=== PATIENT | female | born 1985 | race Caucasian/White ===

== ENCOUNTER 2019-06-28 03:38 | Inpatient (IN) ==
[2019-06-28] MEDS ORDERED: OXYTOCIN 30 UNITS/500 ML BAG IV PRN ×3 (03:48→15:30)
[2019-06-28] MEDS: LACTATED RINGER'S 1,000 ML IV PRN ×4 (04:11→14:37)
[2019-06-28 04:16] LABS: Hematocrit (blood only) 39.6 % (37-47); Mean Corpuscular Hemoglobin 30.2 pg (25-34); Mean Corpuscular Volume 92.1 fL (80-100); Mean Platelet Volume 11.2 fL (7.4-10.4); Platelet Count 172 K/uL (130-400); RDW Coefficient of Variation 14.4 % (11.5-14.5); RDW Standard Deviation 47.9 fL (36.4-46.3)
[2019-06-28 04:27] LABS: Mean Corpuscular Hgb Conc 32.8 g/dL (32-36)
[2019-06-28] MEDS ORDERED: fentaNYL citrate 100 MCG/2 ML VIAL ONE (04:27)
[2019-06-28] MEDS ORDERED: ePHEDrine sulfate 50 MG/ML AMP ONE (04:28)
[2019-06-28] MEDS ORDERED: fentaNYL 2MCG/ML ROPIV 1.25MG/ML 100 ML BAG EPI ONE (04:28)
[2019-06-28] MEDS ORDERED: BUPIVACAINE 0.25% 30 ML VIAL ONE (04:28)
--- NOTE | 2019-06-28 04:51 | Anesthesiology Consultation ---
Date of Service June 28, 2019 Assessment & Plan ASA ASA2 Proposed Anesthesia Anesthesia Type: Labor Epidural Risk / Benefits Reviewed With: PT / POA / Parent / Guardian, Accepts Plan and Informed Consent Obtained History Height/Weight Height: 5 ft 3 in Weight: 56.245 kg Allergies Allergy/AdvReac Type Severity Reaction Status Date / Time diphtheria,pertussis Allergy Verified 06/27/19 14:45 (acellular),te [From Adacel(Tdap Adolesn/Adult)(PF)] Medications Home Medications Medication Instructions Recorded Confirmed Last Taken valacyclovir 500 mg tablet 500 mg PO DAILY #30 tab 05/30/19 06/27/19 06/16/19 21:00 PNV cmb#95-ferrous fumarate-FA 1 tab PO DAILY 06/17/19 06/27/19 06/16/19 21:00 [] Active Medications Generic Name Dose Route Start Last Admin Trade Name Freq PRN Reason Stop Dose Admin Lactated Ringer's 1,000 mls @ 125 mls/hr 06/28/19 03:48 06/28/19 05:12 Lr IV 06/30/19 03:47 999 mls/hr .Q8H PRN Administration L&D Protocol Protocol Past Medical History Medical History Anemia HX OF Asthma MILD/NO INHALER Atypical squamous cells of undetermined significance with positive high risk human papillomavirus 09/22/17 History of chicken pox History of mastitis Temporomandibular joint disorder Vaginal delivery 04/2018 Exercise / Class Metabolic Activity II 4-5 Yardwork/Stairs/Walk up hill Past Family History Family History Other No pertinent family history Past Surgical History Surgical History History of adenoidectomy History of colposcopy with cervical biopsy 08/13/18 History of tonsillectomy History of tooth extraction Past Anesthesia History No Hx of Anesthesia Complications and No Family Hx of Anesthesia Complications History of PONV No Hx of PONV and No Hx of Motion Sickness Social History Smoking Status: Never smoker Hx Alcohol Use: Yes Alcohol type: beer and wine alcohol intake frequency: a few times a week Hx Substance Use: No substance use type: does not use Review of Systems denies fever/cough/ colds/ chest pain/ SOB/ ADDISON Constitutional: no fever and no chills Respiratory: no cough and no dyspnea denies ADDISON Cardiovascular: no chest pain and no dyspnea on exertion Physical Exam Vital Signs Last Vital Signs Temp 36.6 C 06/28/19 04:15 Pulse 71 06/28/19 05:19 Resp 18 06/28/19 04:15 BP 110/62 06/28/19 05:19 Pulse Ox 100 06/28/19 05:15 ENMT Mouth: no TMJ abnormality and no dentition abnormality Thyromental Distance: > or= 3.5 Finger Breadths Mallampati Class: II Neck neck extension not limited Respiratory normal respiratory effort; no respiratory distress Auscultation: lungs clear to auscultation bilaterally Cardiovascular Rate/Rhythm: regular rate and regular rhythm Neurologic moves all extremities Psychiatric Orientation: alert and oriented x 3 Testing Laboratory Results 06/28/19 04:00
[2019-06-28] MEDS ORDERED: DiphenhydrAMINE HCL 50 MG/ML VIAL IV PRN (05:22)
[2019-06-28] MEDS ORDERED: ePHEDrine sulfate 50 MG/ML AMP IV PRN (05:22)
[2019-06-28] MEDS ORDERED: fentaNYL 2MCG/ML ROPIV 1.25MG/ML 100 ML BAG EPI PRN (05:22)
[2019-06-28] MEDS ORDERED: ONDANSETRON INJ 2 MG/ML 2 ML VIAL IV PRN (05:22)
[2019-06-28] MEDS ORDERED: NALOXONE HCL 0.4 MG/1 ML VIAL/CARP IV PRN (05:22)
[2019-06-28] MEDS ORDERED: NALBUPHINE HCL INJ 10 MG/ML AMP IV PRN (05:22)
[2019-06-28] MEDS ORDERED: NALOXONE HCL 1 MG in SODIUM CHLORIDE 0.9% 1000ML 1,000 ML IV PRN (05:22)
--- NOTE | 2019-06-28 06:56 | Labor Progress Brief Note ---
Date of Service June 28, 2019 Subjective For IOL this morning but came in overnight with onset of labor. Membranes intact. Comfortable with epidural. Assessment & Plan (1) Supervision of elderly multigravida: Came in laboring, pitocin ordered to profile it for planned IOL but patient making change and may not need pitocin for now. Did not AROM, waiting for head to be better applied. Anticipate . Trimester: third trimester Qualified Code(s): O09.523 - Supervision of elderly multigravida, third trimester Physical Exam Physical Exam: /-3 (ballottable; did not AROM) FHT Cat 1 [place] not tracing a contraction pattern but change is occurring, so presume poor tracing. Results & Data Vital Signs (Past 12 Hours) Vital Signs Temp Pulse Resp BP Pulse Ox 06/28/19 06:50 105 H 100 06/28/19 06:48 90 105/56 L 06/28/19 06:45 100 H 99 06/28/19 06:40 98 H 98 06/28/19 06:35 100 H 99 06/28/19 06:33 83 107/52 L 06/28/19 06:30 96 H 98 06/28/19 06:25 84 98 06/28/19 06:20 99 H 99 06/28/19 06:17 100 H 91/50 L 06/28/19 06:15 112 H 97 06/28/19 06:10 84 97 06/28/19 06:05 91 H 96 06/28/19 06:02 89 94/52 L 06/28/19 06:00 86 98 06/28/19 05:55 87 97 06/28/19 05:50 76 98 06/28/19 05:46 81 107/58 L 06/28/19 05:45 80 99 06/28/19 05:43 85 96/54 L 06/28/19 05:40 79 101/53 L 99 06/28/19 05:37 75 102/55 L 06/28/19 05:35 89 99 06/28/19 05:34 80 101/50 L 06/28/19 05:31 75 102/50 L 06/28/19 05:30 74 99 06/28/19 05:28 81 98/50 L 06/28/19 05:25 81 110/56 L 100 06/28/19 05:22 67 116/62 06/28/19 05:20 93 H 100 06/28/19 05:19 71 110/62 06/28/19 05:17 94 H 100/56 L 06/28/19 05:15 121 H 100 06/28/19 05:12 54 L 121/62 06/28/19 05:10 75 87/51 L 100 06/28/19 05:08 126 H 104/46 L 06/28/19 05:06 114 H 100/61 06/28/19 05:05 95 H 100 06/28/19 05:01 91 H 109/57 L 06/28/19 05:00 106 H 100 06/28/19 04:58 114 H 129/71 06/28/19 04:55 112 H 100 06/28/19 04:15 97.9 F 82 18 124/60 06/28/19 03:55 97.9 F 82 124/60 Coding Level of Care Code None Diagnoses Supervision of elderly multigravida O09.523 Trimester: third trimester
[2019-06-28] MEDS ORDERED: CALCIUM CARBONATE 500 MG CHEWABLE TAB PO PRN (07:34)
[2019-06-28] MEDS ORDERED: FAMOTIDINE 20MG IV PUSH 20 MG/5 ML SYR IV STA (12:04)
--- NOTE | 2019-06-28 14:41 | Labor Progress Brief Note ---
Date of Service June 28, 2019 Subjective Reason For Note: Routine Evaluation Assessment & Plan (1) Supervision of elderly multigravida: Patient complete and will start pushing Trimester: third trimester Qualified Code(s): O09.523 - Supervision of elderly multigravida, third trimester Physical Exam 2 Genitourinary: Manual OB Exam: + cervical dilation 10 cm, + cervical effacement 100%, + station + 2 and + amniotic fluid clear OB Exam Monitor Tracing: + external FHT monitor used, + external uterine monitor used, + category I and + early decelerations present Results & Data Vital Signs (Past 12 Hours) Vital Signs Temp Pulse Resp BP Pulse Ox 06/28/19 14:35 90 99 06/28/19 14:32 93 H 108/59 L 06/28/19 14:30 79 100 06/28/19 14:25 88 99 06/28/19 14:20 86 99 06/28/19 14:18 83 109/59 L 06/28/19 14:15 82 98 06/28/19 14:10 110 H 98 06/28/19 14:05 110 H 98 06/28/19 14:02 80 104/56 L 06/28/19 14:00 86 98 06/28/19 13:55 83 98 06/28/19 13:50 79 98 06/28/19 13:47 87 99/56 L 06/28/19 13:45 78 98 06/28/19 13:40 80 98 06/28/19 13:35 90 98 06/28/19 13:33 93 H 102/56 L 06/28/19 13:30 100 H 98 06/28/19 13:25 79 98 06/28/19 13:20 102 H 98 06/28/19 13:17 110 H 95/53 L 06/28/19 13:15 86 98 06/28/19 13:10 100 H 98 06/28/19 13:07 18 06/28/19 13:05 97 H 99 06/28/19 13:02 75 108/54 L 06/28/19 13:00 106 H 98 06/28/19 12:55 87 98 06/28/19 12:50 72 98 06/28/19 12:47 75 112/58 L 06/28/19 12:45 78 98 06/28/19 12:40 94 H 98 06/28/19 12:35 67 98 06/28/19 12:33 92 H 99/54 L 06/28/19 12:30 82 99 06/28/19 12:25 72 98 06/28/19 12:20 78 98 06/28/19 12:17 75 120/59 L 06/28/19 12:15 81 99 06/28/19 12:10 79 98 06/28/19 12:05 85 99 06/28/19 12:03 85 107/52 L 06/28/19 12:00 82 99 06/28/19 11:55 82 99 06/28/19 11:50 84 108/59 L 99 06/28/19 11:47 83 106/65 94 06/28/19 11:45 72 99 06/28/19 11:40 69 97 06/28/19 11:35 120 H 97 06/28/19 11:32 125 H 88/52 L 06/28/19 11:30 107 H 97 06/28/19 11:25 98 H 97 06/28/19 11:20 101 H 96 06/28/19 11:17 98 H 95/51 L 06/28/19 11:15 76 96 06/28/19 11:10 82 96 06/28/19 11:05 103 H 97 06/28/19 11:01 92 H 92/51 L 06/28/19 11:00 92 H 96 06/28/19 10:55 93 H 97 06/28/19 10:50 85 96 06/28/19 10:47 74 100/59 L 06/28/19 10:45 73 95 06/28/19 10:40 95 H 96 06/28/19 10:35 84 96 06/28/19 10:32 84 91/54 L 06/28/19 10:30 95 H 97 06/28/19 10:27 103 H 93 06/28/19 10:25 82 96 06/28/19 10:20 113 H 97 06/28/19 10:16 85 89/55 L 06/28/19 10:15 74 95 06/28/19 10:12 77 93 06/28/19 10:10 83 97 06/28/19 10:05 88 95 06/28/19 10:02 85 92/50 L 06/28/19 10:00 120 H 96 06/28/19 09:55 120 H 97 06/28/19 09:50 85 97 06/28/19 09:48 87 92/51 L 06/28/19 09:45 100 H 97 06/28/19 09:40 113 H 97 06/28/19 09:35 88 97 06/28/19 09:31 98 H 94/50 L 06/28/19 09:30 71 96 06/28/19 09:25 88 95 06/28/19 09:20 88 97 06/28/19 09:17 82 101/58 L 06/28/19 09:15 97 H 97 06/28/19 09:10 80 97 06/28/19 09:05 87 96 06/28/19 09:02 83 111/60 06/28/19 09:00 100 H 97 06/28/19 08:55 108 H 97 06/28/19 08:50 80 97 06/28/19 08:46 100 H 99/58 L 06/28/19 08:45 84 97 06/28/19 08:40 113 H 95 06/28/19 08:35 91 H 96 06/28/19 08:33 81 96/55 L 06/28/19 08:30 78 98 06/28/19 08:25 79 98 06/28/19 08:21 77 101/58 L 06/28/19 08:20 78 99 06/28/19 08:15 102 H 98 06/28/19 08:10 104 H 99 06/28/19 08:05 92 H 99 06/28/19 08:02 88 111/57 L 06/28/19 08:00 96 H 100 06/28/19 07:55 83 97 06/28/19 07:50 92 H 100 06/28/19 07:47 142 H 92/55 L 06/28/19 07:45 127 H 100 06/28/19 07:40 105 H 100 06/28/19 07:35 103 H 100 06/28/19 07:31 99 H 99/56 L 06/28/19 07:30 89 100 06/28/19 07:25 99 H 98 06/28/19 07:20 95 H 100 06/28/19 07:16 101 H 101/56 L 06/28/19 07:15 37.0 C 111 H 18 99 06/28/19 07:10 91 H 100 06/28/19 07:05 98 H 100 06/28/19 07:02 95 H 100/58 L 06/28/19 07:00 96 H 99 06/28/19 06:55 90 99 06/28/19 06:50 105 H 100 06/28/19 06:48 90 105/56 L 06/28/19 06:45 100 H 99 06/28/19 06:40 98 H 98 06/28/19 06:35 100 H 99 06/28/19 06:33 83 107/52 L 06/28/19 06:30 96 H 98 06/28/19 06:25 84 98 06/28/19 06:20 99 H 99 06/28/19 06:17 100 H 91/50 L 06/28/19 06:15 112 H 97 06/28/19 06:10 84 97 06/28/19 06:05 91 H 96 06/28/19 06:02 89 94/52 L 06/28/19 06:00 86 98 06/28/19 05:55 87 97 06/28/19 05:50 76 98 06/28/19 05:46 81 107/58 L 06/28/19 05:45 80 99 06/28/19 05:43 85 96/54 L 06/28/19 05:40 79 101/53 L 99 06/28/19 05:37 75 102/55 L 06/28/19 05:35 89 99 06/28/19 05:34 80 101/50 L 06/28/19 05:31 75 102/50 L 06/28/19 05:30 74 99 06/28/19 05:28 81 98/50 L 06/28/19 05:25 81 110/56 L 100 06/28/19 05:22 67 116/62 06/28/19 05:20 93 H 100 06/28/19 05:19 71 110/62 06/28/19 05:17 94 H 100/56 L 06/28/19 05:15 121 H 100 06/28/19 05:12 54 L 121/62 06/28/19 05:10 75 87/51 L 100 06/28/19 05:08 126 H 104/46 L 06/28/19 05:06 114 H 100/61 02/11/20 05:05 95 H 100 06/28/19 05:01 91 H 109/57 L 06/28/19 05:00 106 H 100 06/28/19 04:58 114 H 129/71 06/28/19 04:55 112 H 100 06/28/19 04:15 36.6 C 82 18 124/60 06/28/19 03:55 36.6 C 82 124/60 Coding Level of Care Code None Diagnoses Supervision of elderly multigravida O09.523 Trimester: third trimester
[2019-06-28] MEDS ORDERED: HYDROCORTISONE ACETATE 25 MG SUPP PR PRN (15:30)
[2019-06-28] MEDS ORDERED: bisacodyL 10 MG SUPP PR PRN (15:30)
[2019-06-28] MEDS ORDERED: ACETAMINOPHEN 325 MG TAB PO PRN (15:30)
[2019-06-28] MEDS ORDERED: BENZOCAINE 20% AER SPR 82.5 GM CAN EXT PRN (15:30)
[2019-06-28] MEDS ORDERED: SUPERCREAM 0.870% 15 GM JAR EXT PRN (15:30)
[2019-06-28] MEDS ORDERED: DIPHTHERIA/TETANUS/PERTUSSIS 0.5 ML SYR/VIAL IM ONE (15:30)
--- NOTE | 2019-06-28 15:52 | Delivery Summary ---
DATE OF OPERATION: 06/28/2019 PROCEDURE: Normal spontaneous vaginal delivery. SURGEON: Honorio Whitman MD. PREOPERATIVE DIAGNOSES: 1. Single intrauterine at term. 2. Advanced maternal age. 3. Cervical intraepithelial neoplasia-2. 4. Labor. POSTOPERATIVE DIAGNOSES: 1. Single intrauterine at term. 2. Advanced maternal age. 3. Cervical intraepithelial neoplasia-2. 4. Labor, status post delivery. ESTIMATED BLOOD LOSS: 250 mL. DRAINS: Straight cath at the completion of the case for 250 mL FLUIDS: Continuous lactated ringer. URINE OUTPUT: As noted above. COMPLICATIONS: None. FINDINGS: Viable male infant with weight pending, Apgars of 8 and 9 at one and 5 minutes respectively. INDICATIONS: Sandy is a 33-year-old G2, P1 admitted at 40 weeks 4 days gestational age for spontaneous labor. The patient was admitted at around 4 cm dilation. She progressed to about 6 cm dilation and the patient received an epidural. Contractions were noted to dissipate and the patient was started on oxytocin per regular protocol. She was noted to have some station and effacement change initially and then underwent artificial rupture of membranes for clear fluid following artificial rupture of membranes. The patient progressed to complete-complete +2 station of approximately 2-3 hour period of time. The patient progressed and pushed for approximately 20 minutes to achieve delivery. DESCRIPTION OF PROCEDURE: The patient progressed to 10 cm dilated, 100% effaced, +2 station, pushed over intact perineum with epidural anesthesia and delivered a viable male , weight and Apgars as noted above. Head of the delivered in VELIA position, rest into right transverse. A body cord was noted. The anterior shoulder delivered without difficulty and required no traction for delivery. Body and shoulders quickly followed. was delivered to maternal abdomen and was noted to be vigorous soon after delivery. A 1-minute delayed cord clamping was initiated, after which the cord was double clamped and cut. Cord blood was obtained. Attention was then turned to deliver the placenta, which was delivered intact with 3-vessel cord with gentle cord traction. On inspection of the perineum, vagina, and cervix, there was noted to be no lacerations. Sponge and instrument counts were correct at the completion of the case. Both mother and were stable in the immediate post-delivery period. I attest to the content of the Intraoperative Record and any orders documented therein. Any exception s are noted below.
--- NOTE | 2019-06-28 16:03 | Anesthesia Procedure Note ---
Date of Service June 28, 2019 Anesthesia Post Epidural Note Vital Signs Vital Signs: Temp Pulse Resp BP Pulse Ox 37.0 C 75 18 101/57 L 97 06/28/19 07:15 06/28/19 16:01 06/28/19 13:07 06/28/19 16:01 06/28/19 15:20 Notes Mental Status: alert / awake / arousable Nausea / Vomiting: adequately controlled Pain: adequately controlled Airway Patency, RR, SpO2: stable & adequate BP & HR: stable & adequate Hydration State: stable & adequate Neuraxial Anesthesia: was administered and sensory block is resolving Anesthetic Complications: no major complications apparent and Pt Satisfied with anesthetic care Epidural: Removed without complications and With tip intact
[2019-06-28] MEDS: FAMOTIDINE 20 MG TAB PO SCH (20:48)
[2019-06-28] MEDS: DOCUSATE SODIUM 100 MG CAP PO SCH (20:48)
[2019-06-29] MEDS: IBUPROFEN 600 MG TAB PO PRN ×3 (04:17→19:46)
--- NOTE | 2019-06-29 06:28 | Obstetrical Progress Note ---
Date of Service <Michael Warren DO - Last Filed: 06/29/19 06:28> June 29, 2019 Assessment & Plan <DO David Carnes Last Filed: 06/29/19 06:28> (1) : -PPD#1 -Vitals reviewed, WNL (Tmax 37.0) - GBS -, Blood Type O+ - Clinically stable. - Feels well today. Eating well, voiding well, ambulating well. - Pain well controlled. - Routine post- care - After discharge will have [address] Whitman Day #:: 1 Subjective <Michael Warren DO Last Filed: 06/29/19 06:28> Ambulation: ambulating normally Voiding: no voiding problems Passing Gas:: Yes Diet Tolerance:: regular diet Lochia:: Moderate Feeding Type:: breast feeding Current Pain Level(1-10): 4 (mainly uterine with , improves with analgesics) Patient is a 33 PPD#1. Patient states that she is feeling well today and that her pain is well controlled. She has no other complaints at this time. Constitutional: no fever and no chills Respiratory: no cough, no dyspnea and no wheezing Cardiovascular: no chest pain, no dyspnea, no palpitations, no edema and no calf pain Breast: no breast pain Gastrointestinal: no abdominal pain, no nausea and no vomiting Genitourinary (female): no dysuria and no difficulty urinating Neurologic: no headache(s) Physical Exam <DO David Carnes Last Filed: 06/29/19 06:28> Constitutional WD/WN, vitals as above Respiratory normal respiratory effort, lungs clear to auscultation Cardiovascular Rate/Rhythm: regular rate and regular rhythm Heart Sounds: normal S1 and normal S2; no click, no gallop, no murmur and no cardiac rub Extremities: no calf tenderness and no edema Gastrointestinal (Abdomen) Inspection/Auscultation: abdomen normal to inspection and normal bowel sounds Percussion/Palpation: abdomen soft; abdomen nontender Genitourinary OB Exam Abdomen: + fundal height Fundus: + firm and + relation to umbilicus (1cm below); not tender and not boggy Results & Data <DO David Carnes Last Filed: 06/29/19 06:28> Vital Signs (Past 12 Hours) Vital Signs Temp Pulse Resp BP 06/29/19 04:35 36.5 C 75 16 103/69 06/29/19 00:00 36.6 C 90 16 110/74 06/28/19 20:35 36.7 C 83 18 103/70 <Honorio Whitman MD - Last Filed: 06/29/19 07:52> Co-Signing Physician Notes Patient seen and evaluated and agree with the above findings and plan. Continue routine care. Stable for discharge today if patient prefers. Resident Activity Tracking <Michael Warren DO - Last Filed: 06/29/19 06:28> Resident Involvement: Resident Care Provided Care Provided: OB Delivery
[2019-06-29] MEDS ORDERED: PRENATAL VITAMIN 1 TAB PO SCH (08:00)
[2019-06-29] MEDS: DOCUSATE SODIUM 100 MG CAP PO SCH ×2 (08:32→19:47)
[2019-06-29 09:10] LABS: Hematocrit (blood only) 36.6 % (37-47); Hemoglobin 11.9 g/dL (12.0-16.0)
[2019-06-29] MEDS: FAMOTIDINE 20 MG TAB PO SCH (19:46)
[2019-06-29] MEDS ORDERED: bisacodyL 5 MG TABEC PO SCH (20:00)
--- NOTE | 2019-06-30 06:16 | Obstetrical Progress Note ---
Date of Service <Michael Warren DO - Last Filed: 06/30/19 06:16> June 30, 2019 Assessment & Plan <Michael Warren DO - Last Filed: 06/30/19 06:16> (1) : -PPD#2 -Vitals reviewed, WNL (Tmax 36.6) - GBS -, Blood Type O+ - Clinically stable. - Feels well today. Eating well, voiding well, ambulating well. - Pain well controlled. - Routine post- care - After discharge will have [address] Whitman Day #:: 2 Subjective <Michael Warren DO - Last Filed: 06/30/19 06:16> Ambulation: ambulating normally Voiding: no voiding problems Passing Gas:: Yes Diet Tolerance:: regular diet Lochia:: Small Feeding Type:: breast feeding Current Pain Level(1-10): 2 (improves with analgesics) Patient is a 33 PPD#2. Patient states that she is feeling well today and that her pain is well controlled. She has no other complaints at this time. Constitutional: no fever and no chills Respiratory: no cough, no dyspnea and no wheezing Cardiovascular: no chest pain, no dyspnea, no palpitations, no edema and no calf pain Breast: no breast pain Gastrointestinal: no abdominal pain, no nausea and no vomiting Genitourinary (female): no dysuria and no difficulty urinating Neurologic: no headache(s) Physical Exam <DO David Carnes Last Filed: 06/30/19 06:16> Constitutional WD/WN, vitals as above Respiratory normal respiratory effort, lungs clear to auscultation Cardiovascular Rate/Rhythm: regular rate and regular rhythm Heart Sounds: normal S1 and normal S2; no click, no gallop, no murmur and no cardiac rub Extremities: no calf tenderness and no edema Gastrointestinal (Abdomen) Inspection/Auscultation: abdomen normal to inspection and normal bowel sounds Percussion/Palpation: abdomen soft; abdomen nontender Genitourinary OB Exam Abdomen: + fundal height Fundus: + firm and + relation to umbilicus (2cm below); not tender and not boggy Results & Data <Michael MuniznDO Hernandez Last Filed: 06/30/19 06:16> Vital Signs (Past 12 Hours) Vital Signs Temp Pulse Resp BP 06/30/19 05:00 36.6 C 76 16 109/74 06/29/19 20:00 36.6 C 85 18 112/74 <Nancy Kruger DO - Last Filed: 06/30/19 06:56> Co-Signing Physician Notes Resident Physician Supervision Note: I was present with Dr. Warren during the history and exam. I discussed the case with the resident and agree with the findings and plan as documented in the note. Any exceptions or clarifications are listed here: PPD#2 doing well. DC home today. Instructions reviewed. Documented By: Nancy Kruger DO Resident Activity Tracking <Michael Warren DO - Last Filed: 06/30/19 06:16> Resident Involvement: Resident Care Provided Care Provided: OB Delivery
== END 2019-06-30 22:05 | disposition home or self-care (01) | DRG 807 ==
LOC: OPB 03:38 → 4S1 03:41 → 4S2 18:45

== ENCOUNTER 2024-04-06 08:02 | Inpatient (IN) ==
[2024-04-06] MEDS ORDERED: ACETAMINOPHEN 325 MG TAB PO PRN ×2 (08:41→23:28)
[2024-04-06] MEDS ORDERED: LIDOCAINE 1% LOCAL 20 ML VIAL INFIL PRN (08:41)
[2024-04-06] MEDS ORDERED: OXYTOCIN 30 UNITS/NSS 30 UNITS/500 ML BAG IV PRN ×2 (08:41→23:28)
--- NOTE | 2024-04-06 08:55 | History & Physical Report ---
Date of Service April 06, 2024 Assessment & Plan (1) Group B streptococcal infection during : (2) Two vessel umbilical cord: (3) Elderly multigravida: (4) Hypothyroidism during : (5) Encounter for induction of labor: Plan Admit for IOL d/t 2VC VSS, FHT cat 1, Rh+, GBS+, ri Plan for pit, norman bulb, Pen G, epidural Admission and Anticipated Discharge Date Admission Date: April 06, 2024 History of Present Illness Primary Care Provider: David Moffett DO Sandy is a 38 y/o female currently at 39 2/7 WGA (w KIM 04/11/24 as determined by US) who is here for IOL. One of her previous pregnancies was complicated by: nuchal cord. This was complicated by 2VC, GBS+ status. She has had regular appointments with OB. She denies fevers, fatigue, WALL, SOB, chest pain, leg swelling, or n/v exceeding baseline -related symptoms. Mild, irregular ctx; movement present; no fluid loss or bloody show External FHT and external uterine monitors used; category 1 tracing, normal variability Blood type: O+ Antibody screen: Neg GBS: POS Rubella: Immune VDRL/RPR: Neg Gonorrhea: Not detected Chalmydia: Not detected HIV: Non-reactive HbSAg: Non-reactive Allergies Allergy/AdvReac Type Severity Reaction Status Date / Time diphtheria,pertussis Allergy HAPPENED Verified 04/05/24 09:46 (acellular),te A [From Adacel(Tdap CHILD--HIGH Adolesn/Adult)(PF)] FEVER/RASH Home Medications Medication Instructions Recorded Confirmed Type valacyclovir 500 mg tablet 500 mg PO DAILY PRN Outbreak #30 01/06/23 04/06/24 Rx (Valtrex) tabs 21-iron fu-folic acid PO 08/24/23 04/05/24 History [ Complete] valacyclovir 500 mg tablet 500 mg PO BID #60 tabs 03/02/24 04/05/24 Rx (Valtrex) Past Med/Surg History Problem List (Updated 04/06/24 @ 08:59 by Marianna Schilling MD) Encounter for induction of labor Group B streptococcal infection during Two vessel umbilical cord Axillary lump Hypothyroidism during Encounter for anatomic survey Supervision of elderly multigravida Elderly multigravida Genital herpes simplex (Acute) Fatigue Hot flashes Nocturia Nausea Breakthrough bleeding on control pills Cervicalgia Severe cervical dysplasia Pelvic pain Contraception management Encounter for annual routine gynecological examination Conductive hearing loss of right ear with unrestricted hearing of left ear Eustachian tube dysfunction Acute serous otitis media, right ear Impacted cerumen, right ear Medical History Eustachian tube dysfunction Conductive hearing loss of right ear with unrestricted hearing of left ear Atypical squamous cells of undetermined significance with positive high risk human papillomavirus History of chicken pox History of mastitis Moderate cervical dysplasia Vaginal delivery Anemia Temporomandibular joint disorder Asthma Surgical History H/O LEEP History of colposcopy with cervical biopsy History of tooth extraction History of tonsillectomy History of adenoidectomy Family History Other No pertinent family history Denies family history of Ovarian cancer Prostate cancer Myocardial infarction Breast cancer Colorectal cancer Social History (Updated 04/06/24 @ 08:29 by Karlee Nayak RN) Smoking Status: Never smoker Second Hand Exposure: No; Do You Dip or Chew Tobacco: No; Hx Alcohol Use: No Hx Substance Use: No Preferred Language: Telugu Communication Ability: Effective Visual Impairment: No Limitations Hearing Ability: Normal Machine Welder Required: No Beliefs That Will Affect Care: None marital status: marital status details: Harsh Sewell (45) [phone] Current Living Situation: Spouse and Family Current Living Situation Comment: lives with spouse, 2 children, dogs current occupational status: employed current occupation: PHARM CHECKING CLERK [employer] Other Information That Helps Us Care for You: No Feels Safe at Home: Yes Childhood Exposure to Second-Hand Smoke: No Diet: regular Dental Care, Regularly: Yes Physical Activity Frequency: Does not Exercise Seatbelt Use: always Sunscreen Use: Yes Assistive Devices: None and Glasses Review of Systems 2 Review of Systems: Per HPI Physical Exam 2 Physical Exam: General: Alert and oriented. No acute distress CV: Regular rate and rhythm. No murmurs. Respiratory: CTA bilaterally. No increased work of breathing. Symmetrical chest rise. Abdomen: Gravid: Soft, nontender upon palpation SVE per Dr. Kruger Lower extremities: NO LE edema. No deep calf pain. Luis Fernando's negative bilaterally. Results & Data Results & Data Vital Signs (Past 12 Hours) Vital Signs Temp Pulse Resp BP 04/06/24 08:31 37.0 C 96 H 20 113/68 04/06/24 08:27 96 H 113/68 Laboratory Results 04/06/24 08:50 Supervising Physician Co-Signing Physician Notes Resident Physician Supervision Note: I interviewed and examined the patient. Discussed with Dr. Schilling and agree with findings and plan as documented in the note. Any exceptions or clarifications are listed here: 38yo @ 39 06/24, here for IOL. H/o HSV, no valtrex prophylaxis - no active outbreak by symptoms or exam. GBS+ penicillin prophylaxis. Norman bulb placed 35cc sterile water, will start pitocin with norman. OK for epidural when she desires. She is agreeable to the plan. Documented By: Nancy Kruger, DO Resident Activity Tracking Resident Involvement: Resident Care Provided Care Provided: Adult Hospital Medicine and OB Delivery
[2024-04-06 09:15] LABS: Hematocrit (blood only) 35.4 % (37.0-47.0); Hemoglobin 11.8 g/dl (12.0-16.0); Mean Corpuscular Hemoglobin 29.9 pg (25.0-34.0); Mean Corpuscular Hgb Conc 33.3 g/dL (32.0-36.0); Mean Corpuscular Volume 89.8 fL (80.0-100.0); Mean Platelet Volume 10.4 fL (9.4-12.4); Platelet Count 178 K/uL (130-400); RDW Coefficient of Variation 13.4 % (11.5-14.5); Red Blood Count 3.94 M/uL (4.20-5.40); White Blood Count 6.94 K/ul (4.8-10.8)
[2024-04-06] MEDS: PENICILLIN GK 6 MU in SODIUM CHLORIDE 0.9% 250 ML IV STA (09:26)
[2024-04-06] MEDS: LACTATED RINGER'S 1,000 ML IV SCH (09:40)
[2024-04-06] MEDS: OXYTOCIN 30 UNITS/NSS 30 UNITS/500 ML BAG IV PRN (10:19)
[2024-04-06] MEDS: PENICILLIN GK 3 MU in DEXTROSE 5% 100 ML IV PRN (13:44)
[2024-04-06] MEDS: fentANYL 2 MCG/ML BUPIVacaine 0.125%-NSS 100ML BAG ONE (16:10)
[2024-04-06] MEDS ORDERED: BUPIVACAINE 0.25% PF 30 ML VIAL EPI PRN (16:10)
[2024-04-06] MEDS: LIDOCAINE 2%/EPINEPHRINE 1:200,000 20 ML PF ONE (16:10)
[2024-04-06] MEDS ORDERED: ROPIVACAINE 0.5% PF 5 MG/ML 20 ML VIAL EPI PRN (16:10)
[2024-04-06] MEDS ORDERED: diphenhydrAMINE 50 MG/ML VIAL IV PRN (16:10)
[2024-04-06] MEDS ORDERED: NALBUPHINE HCL INJ 10 MG/ML AMP IV PRN (16:10)
[2024-04-06] MEDS ORDERED: ePHEDrine sulfate 50 MG/ML AMP IV PRN (16:10)
[2024-04-06] MEDS ORDERED: SODIUM CHLORIDE 0.9% PF INJ 10 ML VIAL EPI PRN (16:10)
[2024-04-06] MEDS ORDERED: LIDOCAINE 2% MPF LOCAL 5 ML VIAL EPI PRN (16:10)
[2024-04-06] MEDS ORDERED: fentaNYL citrate PF 100 MCG/2 ML VIAL EPI PRN (16:10)
[2024-04-06] MEDS ORDERED: NALOXONE HCL 1 MG in SODIUM CHLORIDE 0.9% 1,000 ML IV PRN (16:10)
[2024-04-06] MEDS ORDERED: NALOXONE HCL 0.4 MG/1 ML VIAL/CARP IV PRN (16:10)
[2024-04-06] MEDS ORDERED: fentANYL 2 MCG/ML BUPIVacaine 0.125%-NSS 100ML BAG EPI PRN (16:10)
[2024-04-06] MEDS: BUPIVACAINE 0.25% PF 30 ML VIAL ONE (16:10)
--- NOTE | 2024-04-06 16:10 | Anesthesiology Consultation ---
Date of Service April 06, 2024 Assessment & Plan (1) Encounter for pre-operative examination: Chart Review Chart Review: Patient NOT seen in Pre Admission Testing and Acceptable Risk for Labor Epidural Consults Requested none History Height/Weight Height: 5 ft 1 in Weight: 63.503 kg Allergies Allergy/AdvReac Type Severity Reaction Status Date / Time diphtheria,pertussis Allergy HAPPENED Verified 04/05/24 09:46 (acellular),te A [From Adacel(Tdap CHILD--HIGH Adolesn/Adult)(PF)] FEVER/RASH Medications Home Medications Medication Instructions Recorded Confirmed Last Taken valacyclovir 500 mg tablet 500 mg PO DAILY PRN Outbreak #30 01/06/23 04/06/24 04/05/24 (Valtrex) tabs 21-iron fu-folic acid PO 08/24/23 04/05/24 04/05/24 [ Complete] valacyclovir 500 mg tablet 500 mg PO BID #60 tabs 03/02/24 04/05/24 Unknown (Valtrex) Active Medications Generic Name Dose Route Start Last Admin Trade Name Freq PRN Reason Stop Dose Admin Lactated Ringer's 1,000 mls @ 80 mls/hr 04/06/24 09:30 04/06/24 09:40 Lr IV 04/07/24 09:29 80 mls/hr .[id number] DALI Administration Penicillin G Potassium 3 mu/ 106 mls @ 100 mls/hr 04/06/24 12:44 04/06/24 15:24 Dextrose IV 04/16/24 12:43 Infused Q4H PRN Infusion GBS(+) Until Delivery Oxytocin 30 units in 500 mls @ 7 mls/hr 04/06/24 09:44 04/06/24 15:15 Pitocin 30 Units/Nss IV 04/08/24 09:43 0.42 units/hr .Q24H PRN 7 mls/hr Labor Induction/Augmentation Titration Protocol 0.42 UNITS/HR Past Medical History Medical History Atypical squamous cells of undetermined significance with positive high risk human papillomavirus 09/22/17 History of chicken pox History of mastitis Moderate cervical dysplasia Vaginal delivery 04/2018 Anemia HX OF Temporomandibular joint disorder Asthma MILD/NO INHALER Past Family History Family History Other No pertinent family history Denies family history of Ovarian cancer Prostate cancer Myocardial infarction Breast cancer Colorectal cancer Past Surgical History Surgical History H/O LEEP 07/2020, kris 3 History of colposcopy with cervical biopsy 08/13/18 History of tooth extraction History of tonsillectomy History of adenoidectomy Social History Smoking Status: Never smoker Do You Dip or Chew Tobacco: No Hx Alcohol Use: No alcohol intake frequency: a few times a week Hx Substance Use: No substance use type: does not use Physical Exam Vital Signs Last Vital Signs Temp 98.1 F 04/06/24 15:01 Pulse 97 H 04/06/24 16:03 Resp 20 04/06/24 15:01 BP 133/68 04/06/24 16:03 Pulse Ox 100 04/06/24 16:03 Testing Laboratory Results 04/06/24 08:50 Blood Type O Positive 04/06/24 08:50 Antibody Screen NEGATIVE 04/06/24 08:50
[2024-04-06] MEDS: fentaNYL citrate PF 100 MCG/2 ML VIAL ONE (16:51)
[2024-04-06] MEDS: SODIUM CHLORIDE 0.9% PF INJ 10 ML VIAL ONE (16:51)
[2024-04-06] MEDS: BUPIVACAINE 0.25% PF 30 ML VIAL EPI STA (17:37)
[2024-04-06] MEDS: ePHEDrine sulfate 50 MG/ML AMP ONE (17:37)
[2024-04-06] MEDS: fentaNYL citrate PF 100 MCG/2 ML VIAL EPI STA (17:38)
[2024-04-06] MEDS: LIDOCAINE 2%/EPINEPHRINE 1:200,000 20 ML PF EPI STA (17:38)
[2024-04-06] MEDS: SODIUM CHLORIDE 0.9% PF INJ 10 ML VIAL EPI STA (17:38)
[2024-04-06] MEDS ORDERED: ONDANSETRON INJ 2 MG/ML 2 ML VIAL IV PRN (17:52)
[2024-04-06] MEDS: CALCIUM CARBONATE 500 MG CHEWABLE TAB PO PRN (18:03)
[2024-04-06] MEDS: ONDANSETRON INJ 2 MG/ML 2 ML VIAL ONE (18:04)
--- NOTE | 2024-04-06 22:35 | Delivery Summary ---
Vaginal Delivery Summary Date of Service April 06, 2024 Vaginal Delivery Summary [facility] Vaginal Delivery Summary: Pre-delivery diagnoses: 38yo @ 39 2/7, IOL, AMA, 2VC, GBS+, h/o HSV Post-delivery diagnoses: same Procedure: spontaneous vaginal delivery Surgeon: Nancy Kruger DO Complications: none Findings: Viable male . Apgars: 7/8 . Weight pending, please see nursery records Estimated QBL: 60cc Description of delivery: The patient progressed to complete with epidural anesthesia. She then began to push. She spontaneously vaginally delivered a viable from the cephalic presentation. The head delivered in MILAN position. The anterior shoulder delivered, followed by the posterior shoulder, followed by the body. Tight nuchal x 1, unable to reduce therefore delivered through. The baby was placed on mother's abdomen and the cord was doubly clamped and cut. The baby was handed to nursery team, where spontaneous cry was heard. Cord blood was obtained. The placenta was delivered via manual extraction d/t cord avulsion during gentle traction of cord for placental delivery. Uterine sweep revealed no retained placenta. The uterus and vagina were swept of clots and debris. IV pitocin was given. The uterus became firm. The cervix, vagina, and perineum were inspected and no lacerations were noted. Excellent hemostasis was observed. The mother and baby are recovering in stable and good condition in the room. Sponge and instrument counts were correct x 2. Nancy Kruger DO [facility] Vaginal Delivery Charge Vaginal Delivery Codes: 46635 global code for the antepartum, delivery, and post- Delivery Type Details: [facility]
[2024-04-06] MEDS ORDERED: oxyCODONE/ACETAMINOPHEN 5mg/325mg TAB PO PRN (23:28)
[2024-04-06] MEDS ORDERED: HYDROCORTISONE ACETATE 25 MG SUPP PR PRN (23:28)
[2024-04-06] MEDS ORDERED: bisacodyL 10 MG SUPP PR PRN (23:28)
[2024-04-06] MEDS ORDERED: BENZOCAINE 20% SPRY 85 APPLN/85 GM CAN EXT PRN (23:28)
[2024-04-07] MEDS: DIPHTHER/TETAN/PERTUS Vaccine (Tdap, Adol/Adult) 0.5mL IM ONE (00:29)
[2024-04-07] MEDS: IBUPROFEN 600 MG TAB PO PRN (04:24)
--- NOTE | 2024-04-07 06:20 | Anesthesia Procedure Note ---
Date of Service April 07, 2024 Anesthesia Post Epidural Note Vital Signs Vital Signs: Temp Pulse Resp BP Pulse Ox O2 Del Method 98.6 F 85 18 103/67 96 Room Air 04/07/24 03:20 04/07/24 03:20 04/07/24 03:20 04/07/24 03:20 04/07/24 03:20 04/07/24 03:20 Pain Intensity Bilateral Abdomen: Pain Intensity: 0 Notes Mental Status: alert / awake / arousable and participated in evaluation Nausea / Vomiting: adequately controlled Pain: adequately controlled Airway Patency, RR, SpO2: stable & adequate BP & HR: stable & adequate Hydration State: stable & adequate Neuraxial Anesthesia: was administered and sensory block is resolving Anesthetic Complications: no major complications apparent and Pt Satisfied with anesthetic care Epidural: Removed without complications and With tip intact
[2024-04-07 06:28] LABS: Hematocrit (blood only) 34.3 % (37.0-47.0); Hemoglobin 11.3 g/dl (12.0-16.0)
[2024-04-07] MEDS: PRENATAL VITAMIN 1 TAB PO SCH (08:07)
[2024-04-07] MEDS: DOCUSATE SODIUM 100 MG CAP PO SCH (08:07)
--- NOTE | 2024-04-07 08:07 | Obstetrical Progress Note ---
Date of Service April 07, 2024 Assessment & Plan (1) care and examination: PPD#1 doing well. Continue routine care, anticipate DC home tomorrow. Subjective Ambulation: ambulating normally Voiding: no voiding problems Diet Tolerance:: regular diet Lochia:: Moderate Review of Systems All systems reviewed & are unremarkable except as noted in HPI & below Physical Exam Constitutional WD/WN, vitals as above no acute distress Respiratory normal respiratory effort Cardiovascular Rate/Rhythm: regular rate and regular rhythm Gastrointestinal (Abdomen) Inspection/Auscultation: abdomen normal to inspection; abdomen not distended Percussion/Palpation: abdomen soft Genitourinary OB Exam Abdomen: + fundal height Fundus: + firm; not tender Results & Data Vital Signs (Past 12 Hours) Vital Signs Temp Pulse Pulse Resp BP BP Pulse Ox 04/07/24 03:20 37.0 C 85 18 103/67 96 04/07/24 00:50 36.9 C 82 18 115/72 97 04/07/24 00:49 37.2 C 16 04/07/24 00:33 81 104/62 04/07/24 00:18 88 106/59 L 04/07/24 00:03 74 105/57 L 04/07/24 00:02 18 04/06/24 23:48 79 113/56 L 04/06/24 23:33 16 04/06/24 23:33 85 117/57 L 04/06/24 23:18 16 04/06/24 23:18 86 112/57 L 04/06/24 23:03 18 04/06/24 23:03 80 115/58 L 04/06/24 22:48 18 04/06/24 22:48 80 116/55 L 04/06/24 22:35 92 H 100 04/06/24 22:32 18 04/06/24 22:32 88 103/62 04/06/24 22:30 97 H 100 04/06/24 22:29 92 H 94 04/06/24 22:25 95 H 100 04/06/24 22:20 120 H 100 04/06/24 22:15 120 H 100 04/06/24 22:10 119 H 99 04/06/24 22:05 84 99 04/06/24 22:00 76 114/63 99 04/06/24 21:55 79 97 04/06/24 21:50 85 98 04/06/24 21:45 77 99 04/06/24 21:44 75 117/64 04/06/24 21:40 89 99 04/06/24 21:35 82 100 04/06/24 21:30 86 114/68 99 04/06/24 21:25 79 100 04/06/24 21:20 87 100 04/06/24 21:15 82 99 04/06/24 21:14 85 113/68 04/06/24 21:10 86 100 04/06/24 21:05 86 99 04/06/24 21:00 81 111/63 98 04/06/24 20:55 72 97 04/06/24 20:50 79 98 04/06/24 20:45 97 04/06/24 20:45 79 04/06/24 20:45 78 107/56 L 04/06/24 20:41 37.1 C 04/06/24 20:40 93 H 98 04/06/24 20:37 94 H 112/62 04/06/24 20:35 87 97 04/06/24 20:30 74 96 04/06/24 20:29 76 86/51 L 04/06/24 20:25 78 97 04/06/24 20:20 76 96 04/06/24 20:15 96 04/06/24 20:15 71 04/06/24 20:15 77 93 04/06/24 20:14 71 87/48 L 04/06/24 20:10 78 97 O2 Del Method 04/07/24 03:20 Room Air 04/07/24 00:50 Room Air 04/07/24 00:49 04/07/24 00:33 04/07/24 00:18 04/07/24 00:03 04/07/24 00:02 04/06/24 23:48 04/06/24 23:33 04/06/24 23:33 04/06/24 23:18 04/06/24 23:18 04/06/24 23:03 04/06/24 23:03 04/06/24 22:48 04/06/24 22:48 04/06/24 22:35 04/06/24 22:32 04/06/24 22:32 04/06/24 22:30 04/06/24 22:29 04/06/24 22:25 04/06/24 22:20 04/06/24 22:15 04/06/24 22:10 04/06/24 22:05 04/06/24 22:00 04/06/24 21:55 04/06/24 21:50 04/06/24 21:45 04/06/24 21:44 04/06/24 21:40 04/06/24 21:35 04/06/24 21:30 04/06/24 21:25 04/06/24 21:20 04/06/24 21:15 04/06/24 21:14 04/06/24 21:10 04/06/24 21:05 04/06/24 21:00 04/06/24 20:55 04/06/24 20:50 04/06/24 20:45 04/06/24 20:45 04/06/24 20:45 04/06/24 20:41 04/06/24 20:40 04/06/24 20:37 04/06/24 20:35 04/06/24 20:30 04/06/24 20:29 04/06/24 20:25 04/06/24 20:20 04/06/24 20:15 04/06/24 20:15 04/06/24 20:15 04/06/24 20:14 04/06/24 20:10
[2024-04-07 17:34] VITALS: PULSE 80; TEMP 97.9
[2024-04-07] MEDS: bisacodyL 5 MG TABEC PO SCH (22:20)
[2024-04-08 00:20] VITALS: BP 101/69; RESP 18; O2SAT 97
--- NOTE | 2024-04-08 05:41 | Obstetrical Progress Note ---
Date of Service <Marianna Schilling MD - Last Filed: 04/08/24 06:48> April 08, 2024 Assessment & Plan <Marianna Schilling MD - Last Filed: 04/08/24 06:48> (1) care and examination: Plan PPD#2 s/p term : Stable. Rh+, gbs +, ri Continue routine care, continue OOB and ambulation, diet as tolerated Plan for DC mid-morning <Yana Pizano MD - Last Filed: 04/08/24 07:43> (1) care and examination: Subjective <Marianna Schilling MD - Last Filed: 04/08/24 06:48> Sandy is a 38 y/o female who is PPD#2 following at term. Reports minimal pain Is voiding, eating, and ambulating normally Having appropriate lochia Planning for exclusive . Constitutional: no fever, no chills or no sweats Respiratory: no dyspnea Cardiovascular: no chest pain, no palpitations or no calf pain Breast: no breast pain Gastrointestinal: no nausea or no vomiting Genitourinary (female): no dysuria Neurologic: no headache(s) no changes in vision, no headaches Physical Exam <Marianna Schilling MD - Last Filed: 04/08/24 06:48> General: Alert, oriented. No acute distress. Cardiac: Regular rate and rhythm, no murmurs, rubs, or gallops. Respiratory: Clear to auscultation bilaterally. No increased work of breathing. Symmetrical chest rise. No respiratory distress. Abdomen: Soft, nontender, nondistended. Bowel sounds present. Uterus: Uterine fundus firm, nontender, palpable at level of umbilicus Lower extremities: No lower extremity edema or swelling. No deep calf pain. Results & Data <Marianna Schilling MD - Last Filed: 04/08/24 06:48> Vital Signs (Past 12 Hours) Vital Signs Temp Pulse Resp BP Pulse Ox O2 Del Method 04/07/24 22:30 36.6 C 80 18 101/69 97 Room Air 04/07/24 19:00 36.6 C 80 16 112/73 96 Room Air Supervising Physician <Yana Pizano MD - Last Filed: 04/08/24 07:43> Co-Signing Physician Notes Resident Physician Supervision Note: I interviewed and examined the patient. Discussed with Dr. Schilling and agree with findings and plan as documented in the note. Any exceptions or clarifications are listed here: PP2 s/p , doing well. VSS, exam benign and wnl. DC home today Documented By: Yana Pizano MD Resident Activity Tracking <Marianna Schilling MD - Last Filed: 04/08/24 06:48> Resident Involvement: Resident Care Provided Care Provided: Adult Hospital Medicine and OB Delivery
== END 2024-04-08 10:36 | disposition home or self-care (01) | DRG 807 ==
LOC: 4S1 08:02 → 4E2 04-07 00:52